=== PATIENT | male | born 1995 | race Caucasian/White ===

== ENCOUNTER 2016-10-11 11:17 | Emergency (ER) | payer BC ==
[~2016-10-11] VITALS: Ht 170.2 cm; Wt 66.0 kg
[~2016-10-11 11:17] MED LIST: COLACE100 MG PO; MOTRIN800 MG PO; PERCOCET 5/31 TABLET PO; VYVANSE40 MG PO
[2016-10-11 13:26] LABS: HEMATOCRIT 44.4 % (38.0-50.0); MCH 29.7 PG (29.0-34.0); MCV 87.4 FL (86-99); MEAN PLAT.VOLUME 9.6 uM^3 (9.0-12.4); PLATELET COUNT 203 K/uL (156-360); RBC DIS.WIDTH-SD 38.6 % (39-53); RED BLOOD COUNT 5.08 M/uL (4.00-5.50); WHITE BLOOD COUNT 4.2 K/uL (4.1-10.2)
[2016-10-11 13:37] LABS: ADD MIUA? NO; BILIRUBIN NEGATIVE; BLOOD NEGATIVE; COLOR STRAW ((YELLOW)); GLUCOSE (STRIP) NEGATIVE; KETONES NEGATIVE; LEUKOCYTES NEGATIVE; NITRITE NEGATIVE; PROTEIN (STRIP) NEGATIVE; SPECIFIC GRAVITY 1.008 (1.000-1.030); UROBILINOGEN 0.2 MG/DL (0.2-1.0)
[2016-10-11 13:52] LABS: AMPHETAMINE NEGATIVE (500 ng/mL); BARBITURATES NEGATIVE (200 ng/mL); BENZODIAZEPINES NEGATIVE (150 ng/mL); COCAINE NEGATIVE (150 ng/mL); INTERNAL CONTROLS VALID? YES; METHADONE NEGATIVE (200 ng/mL); METHAMPHETAMINE NEGATIVE (500 ng/mL); OPIATES (MORPHINE) NEGATIVE (100 ng/mL); OXYCODONE NEGATIVE (100 ng/mL); PHENCYCLIDINE NEGATIVE (25 ng/mL); PROPOXYPHENE NEGATIVE (300 ng/mL); THC CANNABINOIDS NEGATIVE (50 ng/mL); TRICYCLIC ANTIDEPRESSANTS NEGATIVE (300 ng/mL)
[2016-10-11 14:24] LABS: CHLORIDE 105 mEq/L (99-109); POTASSIUM 4.1 mEq/L (3.7-5.4); SODIUM 140 mEq/L (136-147)
[2016-10-11 14:26] LABS: GLUCOSE 85 mg/dL (70-99)
[2016-10-11 14:27] LABS: ANION GAP 8 MEQ/L (2-14)
[2016-10-11 14:28] LABS: TOTAL BILIRUBIN 0.4 mg/dL (0.0-1.0)
[2016-10-11 14:30] LABS: ALKALINE PHOSPHATASE 62 IU/L (3-129); GFR ESTIMATE (CALCULATED) > 59 mL/min/
[2016-10-11 14:31] LABS: UREA NITROGEN (BUN) 9 mg/dL (9-23)
[2016-10-11 16:09] VITALS: BP 00/00
== END 2016-10-11 16:10 | disposition home or self-care (01) ==
LOC: EME 11:17
PROVIDERS: Nurse Practitioner Family
DX: R41.3 Other amnesia (principal)
CPT/HCPCS: 80053; 81003; 85027; 93005; 99281; 99284